=== PATIENT | female | born 1985 | race Hispanic/Latino ===

== ENCOUNTER 2020-11-10 22:32 | Emergency (ER) | payer SELFPAY ==
--- NOTE | 2020-11-10 23:12 | ER ---
Nurse's Notes [facility] Name: Rosemary Gutierrez Age: 35 yrs Sex: Female : 1985 Arrival Date: 11/10/2020 Time: 22:36 Bed Waiting [facility] MD: Diagnosis: ED Course: 11/10 22:36 Patient arrived in ED. es Administered Medications: No medications were administered Outcome: 23:11 Eloped from waiting room, before seeing physician Time discovered patient gone: October4 2020 at 10:46 23:12 Patient left the ED. [email or web address] Signatures: Marlene Motley James RN RN jb4
== END 2020-11-10 23:12 | disposition left against medical advice (07) ==
LOC: ER 22:32
DX: Z02.9 Encounter for administrative examinations, unspecified (principal)

== ENCOUNTER 2022-06-07 13:13 | Emergency (ER) | payer SELFPAY ==
[2022-06-07] MEDS ORDERED: ONDANSETRON 4 MG (ODT) TAB ONE (13:50)
[2022-06-07 14:15] LABS: SARS-COV-2 RT PCR NEGATIVE (NEGATIVE)
[2022-06-07] MEDS ORDERED: IBUPROFEN 400 MG TAB ONE (14:17)
--- NOTE | 2022-06-07 14:38 | EDPHYS ---
Physician Documentation [facility] Name: Rosemary Gutierrez Age: 37 yrs Sex: Female : 1985 Arrival Date: 06/07/2022 Time: 13:16 Bed 9 Private MD: ED Physician Rivera Waterman HPI: 06/07 13:40 This 37 yrs old Female presents to ER via Ambulatory with complaints of Pain kb All Over, Vomiting, Fever. 13:40 The patient or guardian reports cough, that is intermittent, described as moderate, flu kb symptoms, low-grade fever, myalgias. Onset: The symptoms/episode began/occurred 3 day(s) ago. Severity of symptoms: At their worst the symptoms were moderate, in the emergency department the symptoms are unchanged. Modifying factors: The symptoms are alleviated by nothing, the symptoms are aggravated by nothing. Associated signs and symptoms: Pertinent positives: fever, nausea, rhinorrhea, vomiting. The patient has not experienced similar symptoms in the past. The patient has not recently seen a physician. pt reports cough, congestion, bodyaches, malaise, fever, chills for 3 days. nausea and vomiting started this morning. States she is vomiting phlem. Pt had panic attack while trying to obtain blood pressure, then refused. . Historical: - Allergies: 13:30 potassium iodide; ll1 - PMHx: 13:30 Anxiety; Anemia; ll1 - PSHx: 13:30 "GI SX during childhood"; ll1 - Immunization history:: Client reports receiving the 1st dose of the Covid vaccine. - Social history:: Smoking status: Patient reports the use of cigarette tobacco products, smokes one-half pack cigarettes per day. ROS: 13:40 Cardiovascular: Negative for chest pain, palpitations, and edema. kb 13:40 Constitutional: Positive for body aches, chills, fatigue, fever, malaise. 13:40 ENT: Positive for rhinorrhea, sinus congestion. 13:40 Respiratory: Positive for cough. 13:40 Abdomen/GI: Positive for nausea and vomiting, Negative for abdominal pain. 13:40 All other systems are negative. Exam: 13:40 Constitutional: This is a well developed, well nourished patient who is awake, alert, kb and in no acute distress. Head/Face: Normocephalic, atraumatic. ENT: Moist Mucous membranes Cardiovascular: Regular rate and rhythm with a normal S1 and S2. No gallops, murmurs, or rubs. No pulse deficits. Respiratory: Respirations even and unlabored. No increased work of breathing. Talking in full sentences Abdomen/GI: Soft, non-tender. No distention Skin: Warm, dry with normal turgor. Normal color. MS/ Extremity: Pulses equal, no cyanosis. Neurovascular intact. Full, normal range of motion. Neuro: Awake and alert, GCS 15, oriented to person, place, time, and situation. Moves all extremities. Normal gait. 13:40 Psych: Behavior/mood is anxious, Affect is animated, Oriented to person, place, time, Patient has no thoughts/intents to harm self or others. Vital Signs: 13:31 Pulse 82; Resp 17; Temp 98.1; Pulse Ox 100% ; Weight 47.63 kg; Height 5 ft. 3 in. ll1 (160.02 cm); 13:31 Body Mass Index 18.60 (47.63 kg, 160.02 cm) ll1 13:31 refused BP, could not tolerate ll1 MDM: 13:16 Patient medically screened. kb 13:40 Data reviewed: vital signs, nurses notes. Data interpreted: Pulse oximetry: on room air kb is 100 %. Interpretation: normal. 14:30 Counseling: I had a detailed discussion with the patient and/or guardian regarding: the kb historical points, exam findings, and any diagnostic results supporting the discharge/admit diagnosis, lab results, the need for outpatient follow up, a family practitioner, to return to the emergency department if symptoms worsen or persist or if there are any questions or concerns that arise at home. 06/07 13:23 Order name: COVID-19/FLU A+B; Complete Time: 14:37 ll1 Administered Medications: 13:54 Drug: Zofran (Ondansetron) 4 mg Route: PO; tp1 15:02 Follow up: Response: Nausea is decreased tp1 14:18 Drug: Ibuprofen 400 mg Route: PO; tp1 15:02 Follow up: Response: Pain is decreased tp1 Disposition: 15:11 Co-signature as Attending Physician, Rivera Waterman DO I was immediately available on-site ms3 in the Emergency Department for consultation in the care of the patient. Disposition Summary: 06/07/22 14:38 Discharge Ordered Location: Home kb Condition: Stable kb Diagnosis - Influenza due to identified novel influenza A virus kb Followup: kb - With: Emergency Department - When: As needed - Reason: Worsening of condition Followup: kb - With: Private Physician - When: 2 - 3 days - Reason: Recheck today's complaints, Continuance of care, Re-evaluation by your physician Discharge Instructions: - Discharge Summary Sheet kb - Influenza, Adult, [id number] kb Forms: - Medication Reconciliation Form kb - Thank You Letter kb - Antibiotic Education kb - Prescription Opioid Use kb Signatures: Dispatcher [employer] EDMS Mine Henao, PAINTER HELPER [employer]-C PAINTER HELPER [employer] Phyllis Fatima, RN RN ll1 Rivera Waterman DO DO ms3 Anastacia Zuniga, RN RN tp1
--- NOTE | 2022-06-07 14:38 | ER ---
Nurse's Notes [facility] Name: Rosemary Gutierrez Age: 37 yrs Sex: Female : 1985 Arrival Date: 06/07/2022 Time: 13:16 Bed 9 Private MD: Diagnosis: Influenza due to identified novel influenza A virus Presentation: 06/07 13:31 Chief complaint: Patient states: Cough, congestion, body aches, sinus pressure, malaise ll1 x 3 days. Coronavirus screen: Vaccine status: Patient reports receiving the 1st dose of the Covid vaccine. Client denies travel out of the [place] in the last 14 days. congestion, cough unrelated to allergies, fatigue, headache, muscle pain, Client presents with at least one sign or symptom that may indicate coronavirus-19. Standard/surgical mask placed on the client. Ebola Screen: Patient denies travel to an Ebola-affected area in the 21 days before illness onset. Initial Sepsis Screen: Does the patient meet any 2 criteria? No. Patient's initial sepsis screen is negative. Does the patient have a suspected source of infection? Yes: Productive cough/pneumonia. Risk Assessment: Do you want to hurt yourself or someone else? Patient reports no desire to harm self or others. Onset of symptoms was June 05, 2022. 13:31 Method Of Arrival: Ambulatory ll1 13:31 Acuity: SMITA 4 ll1 Historical: - Allergies: 13:30 potassium iodide; ll1 - PMHx: 13:30 Anxiety; Anemia; ll1 - PSHx: 13:30 "GI SX during childhood"; ll1 - Immunization history:: Client reports receiving the 1st dose of the Covid vaccine. - Social history:: Smoking status: Patient reports the use of cigarette tobacco products, smokes one-half pack cigarettes per day. Screenin:01 Abuse screen: Denies threats or abuse. Denies injuries from another. Nutritional tp1 screening: No deficits noted. Tuberculosis screening: No symptoms or risk factors identified. Fall Risk None identified. Assessment: 13:54 General: Appears in no apparent distress. uncomfortable, Behavior is cooperative, tp1 anxious. Pain: Complains of pain in head and back Pain does not radiate. Pain currently is 9 out of 10 on a pain scale. Quality of pain is described as aching. Neuro: Level of Consciousness is awake, alert, obeys commands, Oriented to person, place, time, situation. Cardiovascular: Patient's skin is warm and dry. Respiratory: Reports chest pressure Airway is patent Respiratory effort is even, unlabored. GI: Abdomen is flat, non-distended, Reports vomiting. : No signs and/or symptoms were reported regarding the genitourinary system. EENT: Reports nasal congestion. Derm: Skin is pink, warm \\T\\ dry. Musculoskeletal: Circulation, motion, and sensation intact. 15:01 Reassessment: Patient appears in no apparent distress at this time. No changes from tp1 previously documented assessment. Patient and/or family updated on plan of care and expected duration. Pain level reassessed. Patient is alert, oriented x 3, equal unlabored respirations, skin warm/dry/pink. Vital Signs: 13:31 Pulse 82; Resp 17; Temp 98.1; Pulse Ox 100% ; Weight 47.63 kg; Height 5 ft. 3 in. ll1 (160.02 cm); 13:31 Body Mass Index 18.60 (47.63 kg, 160.02 cm) ll1 13:31 refused BP, could not tolerate ll1 ED Course: 13:16 Patient arrived in ED. mr 13:16 Mine Henao, [facility]. kb 13:16 Rivera Waterman DO is Attending Physician. kb 13:30 Arm band placed on Patient placed in an exam room, on a stretcher. ll1 13:33 Triage completed. ll1 13:48 Anastacia Zuniga, RN is Primary Nurse. tp1 13:48 COVID-19/FLU A+B Sent. tp1 13:55 Patient has correct armband on for positive identification. Bed in low position. Call tp1 light in reach. Adult w/ patient. 15:02 No provider procedures requiring assistance completed. Patient did not have IV access tp1 during this emergency room visit. Administered Medications: 13:54 Drug: Zofran (Ondansetron) 4 mg Route: PO; tp1 15:02 Follow up: Response: Nausea is decreased tp1 14:18 Drug: Ibuprofen 400 mg Route: PO; tp1 15:02 Follow up: Response: Pain is decreased tp1 Medication: 15:02 VIS not applicable for this client. tp1 Outcome: 14:38 Discharge ordered by . kb 15:02 Discharged to home ambulatory, with friend. tp1 15:02 Condition: good 15:02 Discharge instructions given to patient, Instructed on discharge instructions, follow up and referral plans. Demonstrated understanding of instructions, follow-up care. 15:02 Patient left the ED. tp1 Signatures: Mine Henao, SARAHY YU-Altagracia Trevor Lynne mr Phyllis Fatima RN RN ll1 Anastacia Zuniga RN RN tp1 Corrections: (The following items were deleted from the chart) 13:33 13:33 General: ll1 ll1 13:34 13:31 Pulse 82bpm; Resp 17bpm; Pulse Ox 100%; Temp 98.1F; 47.63 kg; Height 5 ft. 3 in.; ll1 BMI: 18.6; ll1
[2022-06-07 15:15] VITALS: TEMP 98.1; O2SAT 100
== END 2022-06-07 15:02 | disposition home or self-care (01) ==
LOC: ER 13:13
DX: J10.1 Influenza due to other identified influenza virus with other respiratory manifestations (principal); Z20.822 Contact with and (suspected) exposure to COVID-19; F17.210 Nicotine dependence, cigarettes, uncomplicated; Z91.048 Other nonmedicinal substance allergy status
CPT/HCPCS: 0240U; 99283; Q0162